=== PATIENT | female | born 1945 | race African-American/Black ===

== ENCOUNTER 2024-10-20 20:18 | Emergency (ER) | payer MEDICARE, OTHER, SELFPAY ==
[2024-10-20 20:22] VITALS: BP 120/90
[2024-10-20] MEDS: MOTRIN 400 MG PO (23:04)
--- NOTE | 2024-10-20 23:07 | ED.GENMED ---
History of Present Illness
General
Chief Complaint: Fall
Source: patient and family
Exam Limitations: none
Time Seen by Provider: 10/20/24 22:27
Nursing documentation reviewed up to this point in time: agreed with
History of Present Illness
History of Present Illness:
Patient presents to ED for evaluation after fall inside her garage, resulting in right shoulder pain and forehead laceration. Denies headache. Denies neck pain. Denies loss of consciousness. Denies dizziness. Denies blurred vision. Denies
nausea or vomiting. Denies chest pain. Denies back pain. Denies difficulty of ambulation afterwards. Patient unsure of her last tetanus vaccination.
Review of Systems
Review of Systems
Allergies reviewed?: Yes
All Other Systems: ROS reviewed and negative except as documented in HPI and ROS
Constitutional: Reports no symptoms; Denies fever
Respiratory: Reports no symptoms
Cardiac: Reports no symptoms
ABD/GI: Reports no symptoms; Denies vomiting
Musculoskeletal: Reports other (shoulder pain)
Skin: Reports other (forehead laceration)
Neurological: Reports no symptoms; Denies dizzy, headache, weakness or numbness
Phy Exam
Physical Exam
Physical Exam:
Physical Exam
General: mild painful distress, not acutely ill. afebrile.
Head: an approx 5cm, linear vertical laceration noted over mid-forehead, without active bleeding
Neck: supple. normal range of motion
Abdomen: normal bowel sounds. not tender.
Neuro: alert and oriented x 3. no focal neurological deficits
Skin: no rash
Psychiatric: well kept. interactive and cooperative
Extremities: moderate right shoulder tenderness to palpation.
Course
Orders/Labs/Results
Orders:
Orders
10/20/24 20:26
CR Humerus - Right Min 2 View* Urgent
Comment:
Reason For Exam: fall, pain
10/20/24 22:53
Ibuprofen [Motrin] 400 mg PO NOW STA
Vital Signs
Initial and Last Documented VS:
Initial Vital Signs
Temp Pulse Resp BP Pulse Ox
98.0 F 92 18 120/90 97
10/20/24 20:22 10/20/24 20:22 10/20/24 20:22 10/20/24 20:22 10/20/24 20:22
Last Documented Vital Signs
Temp Pulse Resp BP Pulse Ox
98.0 F 92 18 120/90 97
10/20/24 20:22 10/20/24 20:22 10/20/24 20:22 10/20/24 20:22 10/20/24 20:22
Procedures
Laceration Closure
Forehead:
Status of Wound: clean
Size of Wound in cm: 5
Description of Wound Edges: sharp
Preparation: cleaned with SurClens
Anesthesia: 1% Lidocaine with epi
Revision/Debridement: routine- no revision
Type of Closure: single layer closure
Skin Closure Material: 5-0 vicryl
Number of sutures: 6
MDM/Problems Addressed
MDM/Problems Addressed:
Patient will check with her primary care physician regarding her tetanus vaccination status. Defers tetanus vaccination at this time.
Forehead laceration appears superficial, no indication for imaging studies at this time. Patient does not take any blood thinning medications. Wound well-approximated with placement of 6 absorbable sutures. Patient otherwise remains afebrile,
hemodynamically stable, and neurologically intact. Patient will be discharged home in stable condition, to the care of her son, with recommendation to follow-up with referred orthopedic surgeon for reevaluation. Head injury precautions provided.
In addition, informed patient and family that if sutures remain in place after 10 days, must follow up with pmd and have the sutures removed. Pt and son expressed understanding at time of discharge.
*Critical Care Note
Total Time (30-74mins, 75-104mins- exclusive of procedures): Not Applicable
ED Attending Note
-
Portions of this chart may have been created with voice recognition software.� Occasional wrong word or��sound alike� substitutions may have occurred due to the inherent limitations of voice recognition software.
Discharge Plan
Departure
Patient Disposition: Home (Routine Discharge)
Date of Disposition: 10/21/24
Time of Disposition: 00:16
Patient with high blood pressure during this ER visit?: Yes
Discharge Problem:
Fracture, humerus, Forehead laceration
Instructions: Head Injury in Adults (DC), Laceration Repair With Stitches (DC), Upper Arm Fracture ED
Prescriptions:
New
oxycodone-acetaminophen [Percocet] 5-325 mg Tablet
1 tab PO Q6HPRN PRN (Reason: pain) Qty: 12 0RF
Referrals:
Aliya Roland DO [Family Provider] -
Evens Fowler MD [Active] -
Activity Restrictions/Additional Instructions:
As discussed, please follow-up with referred orthopedic surgeon for further evaluation and treatment. In the meantime, there are 6 absorbable sutures that were used to repair laceration in your forehead. If sutures remain after 10 days, you must
follow-up with your primary care physician to have them removed. Your prescription has been sent electronically to [facility] pharmacy in [place].
Interventions
Interventions:
*Risk Screen - Suicide Last Done: 10/20/24 20:22
*General Assessment Last Done: 10/20/24 20:22
*Neglect/Abuse Screening Last Done: 10/20/24 23:23
*ED COVID-19 Vaccine History Last Done: 10/20/24 20:22
*Nursing Disposition Last Done: 10/21/24 00:40
ED-Musculoskeletal Assessment Last Done: 10/20/24 23:23
ED- Neurological Assessment Last Done: 10/20/24 23:23
ED-Skin Assessment Last Done: 10/20/24 23:23
Discharge Date and Time
Discharge Date/Time: 10/21/24 00:42
Print Language: [id number]
== END 2024-10-21 00:42 | disposition home or self-care (01) ==
LOC: EMR 20:18
PROVIDERS: EMERGENCY PHYSICIAN Emergency Medicine; FAMILY PHYSICIAN Student in an Organized Health Care Education/Training Program
DX: S42.291A Other displaced fracture of upper end of right humerus, initial encounter for closed fracture (principal); S01.81XA Laceration without foreign body of other part of head, initial encounter; W19.XXXA Unspecified fall, initial encounter
CPT/HCPCS: 12013; 99283; 73060